=== PATIENT | female | born 1940 | race Caucasian/White ===

== ENCOUNTER 2016-06-16 13:32 | Outpatient (CLI) | payer OTHER ==
[~2016-06-16 13:32] MED LIST: ATIVAN1 MG PO; FIBER FORMULA PO; FISH OIL1200 MG PO; GABAPENTIN600 MG PO; HYDROCHLOROTHIA25 MG PO; LIPITOR20 MG PO; MULTIPLE VITAMIN PO; NAPROSYN250 MG PO; OMEPRAZOLE40 MG PO; PRESERVISION AREDS 2 PO
--- NOTE | 2016-06-16 15:29 | DIAGNOSTIC IMAGING REPORT ---
PROCEDURE: MR LUMBAR SPINE W/WO CONTRAST INDICATION: INCREASTIN PAIN L2-3 RADICULOPATHY TECHNIQUE: Noncontrast T1, T2, and STIR sagittal images. T1 and T2 axial images. COMPARISON: Lumbar MRI 07/02/2015 and 01/23/1950 FINDINGS: L4-5 surgical fusion, discectomy and laminectomy. Multilevel disc degeneration, disc protrusions and spur formation. There is mild narrowing of the L1-2, L2-3 and L5-S1 disc spaces. There is increasing narrowing of the L4-5 disc space. Paraspinal soft tissues are unremarkable. L1-2: Moderate disc bulge without spinal or foraminal stenosis L2-3: Mild broad-based disc bulge with mild bilateral foraminal stenosis. No spinal stenosis. L3-4: Mild broad-based disc bulge and facet arthropathy with stable mild bilateral foraminal stenosis but there is no spinal stenosis. L4-5: Laminectomy, discectomy and increasing mild to moderate disc space narrowing with a moderate to severe right and mild left foraminal disc protrusion/spur complex which appears unchanged, resulting in moderately severe right foraminal and mild left foraminal stenosis. Evaluation for postoperative fibrosis is precluded by magnetic susceptibility artifacts. No spinal stenosis. L5-S1: Mild broad-based disc protrusion and facet arthropathy with stable mild bilateral foraminal stenosis. There is no spinal stenosis. IMPRESSION: 1. Mild to moderate degenerative changes with multilevel disc protrusions 2. L4-5 surgical fusion, laminectomy, discectomy and increasing mild to moderate disc space narrowing. There is stable moderate to severe right and mild left foraminal stenosis secondary to a the disc protrusion/spur complex. Presence of postoperative fibrosis cannot be evaluated due to magnetic susceptibility artifacts 3. Mild bilateral L2-3, L3-4 and L5-S1 foraminal stenosis
== END 2016-06-16 23:00 ==
LOC: LAB SRH 13:32 → MRI SRH 13:32
DX: M25.559 Pain in unspecified hip (principal); M51.27 Other intervertebral disc displacement, lumbosacral region; M48.07 Spinal stenosis, lumbosacral region; Z98.1 Arthrodesis status
CPT/HCPCS: 90074; 91631; 92560

== ENCOUNTER 2016-07-02 14:01 | Outpatient (CLI) | payer OTHER ==
--- NOTE | 2016-07-02 16:54 | DIAGNOSTIC IMAGING REPORT ---
PROCEDURE: MR LOWER EXT JOINT WO CONT-LT INDICATION: SEVERE LEFT GROIN PAIN TECHNIQUE: Coronal T1 and STIR sequences through the whole pelvis. Three plane high-resolution PD and PD fat sat sequences through the left hip. COMPARISON: Left hip x-ray 05/12/2016 FINDINGS: Mild left hip chondromalacia. Normal osseous structures without occult fracture or AVN. Normal labrum. There is no left hip effusion. Increased signal of the gluteus medius and minimus tendons with a small amount of fluid adjacent to the greater trochanter consistent with trochanter of bursitis. Pelvic muscular structures are unremarkable. Moderate sigmoid diverticulosis. IMPRESSION: 1. Mild left hip chondromalacia 2. Left gluteus medius and minimus tendinosis with greater trochanteric bursitis 3. Sigmoid diverticulosis
== END 2016-07-02 23:00 ==
LOC: MRI SRH 14:01
DX: R10.32 Left lower quadrant pain (principal); M94.252 Chondromalacia, left hip

== ENCOUNTER 2016-09-09 10:27 | Outpatient (CLI) | payer OTHER ==
--- NOTE | 2016-09-09 11:31 | DIAGNOSTIC IMAGING REPORT ---
PROCEDURE: DEXA BONE DENSITY STUDY CLINICAL INDICATION: Osteopenia, calcium supplementation. COMPARISON: 12/28/2007 FINDINGS: LUMBAR SPINE: L1-L3 was measured. There has been an L4-5 fusion. Bone mineral density 0.781 g/cm2, T score -2.2, osteopenia, change from previous 2.9 percent . LEFT HIP: Bone mineral density 0.777 g/cm2, T score -1.4, osteopenia, change from previous -11.8 percent, significant . LEFT FEMORAL NECK: Bone mineral density 0.559 g/cm2, T score -2.6, osteoporosis, change from previous -21.8 percent, significant . FRACTURE RISK CALCULATION ( when applicable): Not calculated secondary to T score below -2.4. (T score greater or equal to -1.0 to: NORMAL) (T score from -1.1 to -2.4: OSTEOPENIA) (T score ess than or equal to -2.5: OSTEOPOROSIS) IMPRESSION: 1. Significant interval decrease in bone mineral density in the left femoral neck and total left hip compared to the previous study. 2. Osteoporosis of the left femoral neck puts the patient at a high risk of fracture.
== END 2016-09-09 23:00 ==
LOC: XR SRH 10:27
DX: M81.0 Age-related osteoporosis without current pathological fracture (principal)

== ENCOUNTER → 2016-09-18 | Outpatient (CLI) | payer OTHER ==
--- NOTE | 2016-09-18 13:35 | DIAGNOSTIC IMAGING REPORT ---
PROCEDURE: MR UPPER EXTREMITY W/O CONT-RT INDICATION: RT SHOULDER ROTATOR CUFF TEAR TECHNIQUE: PD and PD fat sat axial, T1 and PD fat sat coronal, PD and STIR sagittal sequences through the shoulder. COMPARISON: None. FINDINGS: Rotator cuff: There is attenuation and fraying of the distal subscapularis tendon with mild surrounding edema. The transverse humeral ligament appears diminutive. The supraspinatus tendon is mildly heterogeneous and demonstrating a tiny amount of bursal surface and interstitial increased signal but overall is intact. There is a small amount of bursal surface fraying at the anterior supraspinatus tendon insertion site. There is mild heterogeneity of the infraspinatus fibers as well, however they appear intact. Biceps tendon: The intra-articular portion of the long head of the biceps tendon is extremely diminutive and not consistently seen. In the absence of intra-articular contrast, the rotator interval structures are not well delineated. The extra-articular biceps tendon demonstrates fragmentation/chronic-appearing longitudinal tear. Osseous structures and articular surfaces: There is irregularity at the acromioclavicular joint with mild hypertrophy. Conventional anatomy of the acromion with type 2 morphology. There is mild lateral downsloping and fibrosis along the undersurface suggestive of a prior acromioplasty. Minor superior subluxation of the humeral head in the glenoid fossa with small inferior humeral head osteophyte. Anterior inferior glenoid spurring. There is cystic change in the humeral head at the infraspinatus tendon insertion. The marrow signal is otherwise normal. Moderate humeral head chondromalacia diffusely. Moderate cartilage thinning along the superior aspect of the glenoid fossa. Labral ligamentous complex: In the absence of intra-articular contrast, the labrum is incompletely evaluated. There is a fissure through the posterior labrum at the 10 -11 o'clock position. The rest of the labrum appears grossly intact. The attachment of the middle glenohumeral ligament is not well seen. The inferior glenohumeral ligament bands appear grossly intact. Fluid, soft tissues, and joint space: No significant glenohumeral joint effusion. Trace edema in the subacromial subdeltoid bursa. No significant bursal fluid. No paralabral or spinoglenoid cysts. There is slight relative atrophy of subscapularis muscle. The rotator cuff muscles are otherwise normal in bulk and signal. The neurovascular bundle appears normal. IMPRESSION: 1. Tendinopathy and partial thickness tearing of the subscapularis tendon. 2. Probable rotator cuff repair. Heterogeneous appearance of supra and infraspinatus tendons. 3. Probable prior acromioplasty with mild AC joint hypertrophy. No significant impingement. 4. Moderate glenohumeral chondromalacia with mild osteoarthritic spurring. 5. Questionable posterior labral fissure. 6. Diminutive intra-articular long head of the biceps tendon and longitudinal tearing of the extra-articular portion. Chronicity of this is uncertain and there may have been a remote injury and postoperative changes to the biceps.
== END ==
LOC: MRI SRH 10:25
DX: S46.811A Strain of other muscles, fascia and tendons at shoulder and upper arm level, right arm, initial encounter (principal); M75.81 Other shoulder lesions, right shoulder; M94.211 Chondromalacia, right shoulder; R93.7 Abnormal findings on diagnostic imaging of other parts of musculoskeletal system

== ENCOUNTER 2016-11-27 10:26 | Outpatient (CLI) | payer OTHER ==
--- NOTE | 2016-11-27 11:34 | DIAGNOSTIC IMAGING REPORT ---
PROCEDURE: MG BILATERAL SCREENING W/CAD INDICATION: Screening. Family history breast carcinoma (sister). TECHNIQUE: Bilateral CC and MLO digital views. COMPARISON: Compared 11/25/2015, 11/21/2014, and 11/20/2013. FINDINGS: Computer-aided detection applied. Moderately dense with scattered dystrophic calcifications. No change. IMPRESSION: 1. Negative mammogram. RESULT CODE: 1- Negative. A. A negative report should not delay biopsy if a dominant or clinically suspicious mass is present. 10-15% of cancers are not identified by x-ray. B. A negative report may reinforce clinical impression. C. Adenosis and dense breasts may obscure an underlying neoplasm. D. False positive reports average 6-10%. E.. A yearly screening mammogram is recommended. A reminder letter will be scheduled.
== END 2016-11-27 23:00 | disposition home or self-care (01) ==
LOC: MAM SRH 10:26
DX: Z12.31 Encounter for screening mammogram for malignant neoplasm of breast (principal); Z80.3 Family history of malignant neoplasm of breast